=== PATIENT | male | born 1990 | race African-American/Black ===

== ENCOUNTER 2017-04-25 13:09 | Emergency (ER) | payer SELFPAY ==
[~2017-04-25] VITALS: Ht 175.3 cm; Wt 68.1 kg
[2017-04-25] MEDS ORDERED: BACTRIM,SEPT1 TABLET PO (15:23)
[2017-04-25] MEDS ORDERED: KEFLEX500 MG PO (15:23)
[2017-04-25 15:56] VITALS: BP 000/00
== END 2017-04-25 15:57 | disposition home or self-care (01) ==
LOC: EME 13:09
DX: L03.116 Cellulitis of left lower limb (principal); F17.200 Nicotine dependence, unspecified, uncomplicated
CPT/HCPCS: 87070; 87075; 87077; 87147; 87186; 87205; 99281; 99284